=== PATIENT | male | born 1950 | race Caucasian/White ===

== ENCOUNTER 2024-04-05 12:05 | Emergency (ER) | payer MEDICARE, SELFPAY ==
[2024-04-05 12:21] VITALS: BP 130/72; PULSE 68; RESP 18; TEMP 36.6; O2SAT 100
[2024-04-05 12:23] VITALS: BP 130/72; PULSE 68; RESP 18; TEMP 36.6; O2SAT 100
--- NOTE | 2024-04-05 12:39 | ED.SKABFB ---
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 Yesterday it became red and swollen and today became worse. Denies fever. Reports some mild itching. He did take some Benadryl, which did help with some swelling immediately surrounding the insect bite. Related Data Home Medications Medication Instructions Recorded Confirmed cyanocobalamin (vitamin B-12) 1,000 mcg DIRECTED 04/05/24 04/05/24 1,000 mcg/mL injection solution fluticasone furoate 200 inh inhalation DIRECTED 04/05/24 mcg-vilanterol 25 mcg/dose inhalation powder (Breo Ellipta) losartan 25 mg tablet 25 mg DIRECTED 04/05/24 04/05/24 lovastatin 40 mg tablet 40 mg PO DIRECTED 04/05/24 04/05/24 silodosin 8 mg capsule 8 mg DIRECTED 04/05/24 04/05/24 solriamfetol 75 mg tablet (Sunosi) 75 mg DIRECTED 04/05/24 04/05/24 Allergies Allergy/AdvReac Type Severity Reaction Status Date / Time Penicillins Allergy Intermediate Hives Verified 04/05/24 12:20 Review of Systems Review of Systems: CONSTITUTIONAL: Denies body aches, fever, chills, or sweats. EYES: Denies visual changes, redness, or discharge. ENT: Denies rhinorrhea, congestion, sore throat, or otalgia. CARDIOVASCULAR: Denies chest pain, palpitations, or edema. RESPIRATORY: Denies cough or dyspnea. GASTROINTESTINAL: Denies abdominal pain, nausea, vomiting, or diarrhea. GENITOURINARY: Denies dysuria or hematuria. SKIN: + insect bite, redness, swelling MUSCULOSKELETAL: Denies back pain, joint pain, or myalgia. NEUROLOGIC: Denies headache, numbness, tingling, or weakness. PSYCH: Denies depression or anxiety. [facility] Past Medical History Medical History (Updated 04/05/24 @ 12:43 by Tavia Aguirre, [employer], [employer]) Hypertension Comments At time of signature, I have reviewed and agree with nursing past medical, surgical, social and family history unless otherwise noted. Please see nursing chart for further information. There is no relevant family history pertinent to the presenting complaint Exam Narrative: GENERAL: Well-appearing, well-nourished, and in no acute distress. HEAD: Normocephalic, atraumatic. EYES: EOMI. No redness or drainage. Conjunctivae normal. ENT: Mucous membranes pink and moist. NECK: Normal AROM. CHEST: No respiratory distress. EXTREMITIES: 16 x 10 cm area of erythema and mild edema to the right forearm, volar aspect. There are 2 small insect bites in the center. No induration, fluctuance noted. Distal sensation intact. Capillary refill normal. Radial pulse normal. Full range of motion of the elbow and wrist without pain. Area of erythema is mildly tender. SKIN: Warm, dry, no rash. Capillary refill normal. Normal skin turgor. NEURO: No focal deficits. Alert and oriented x3. Gait steady. PSYCH: Normal affect. No signs of depression or anxiety. Course Course Level of Care: Express Care Visit Vital Signs Vital signs: Vital Signs Temperature 97.9 F 04/05/24 12:21 Pulse Rate 68 04/05/24 12:21 Respiratory Rate 18 04/05/24 12:21 Blood Pressure 130/72 04/05/24 12:21 Pulse Oximetry 100 04/05/24 12:21 Oxygen Delivery Room Air 04/05/24 12:21 Temperature 97.9 F 04/05/24 12:23 Pulse Rate 68 04/05/24 12:23 Respiratory Rate 18 04/05/24 12:23 Blood Pressure 130/72 04/05/24 12:23 Pulse Oximetry 100 04/05/24 12:23 Oxygen Delivery Room Air 04/05/24 12:23 Reviewed MDM - Skin/Abscess/Foreign Bdy MDM Narrative Medical decision making narrative: Patient will be treated with a course of doxycycline for cellulitis. Discussed continuin
== END 2024-04-05 12:53 | disposition home or self-care (01) ==
PROVIDERS: Emergency Provider Nurse Practitioner; PCP Internal Medicine
DX: L03.113 Cellulitis of right upper limb (principal); S50.861A Insect bite (nonvenomous) of right forearm, initial encounter; W57.XXXA Bitten or stung by nonvenomous insect and other nonvenomous arthropods, initial encounter; I10 Essential (primary) hypertension
CPT/HCPCS: 99203; G0463